=== PATIENT | female | born 2000 | race Two or more races ===

== ENCOUNTER 2020-04-29 11:30 | Emergency (ER) | payer MEDICAID, OTHER ==
[~2020-04-29] VITALS: Ht 157.5 cm; Wt 72.1 kg
[2020-04-29 12:08] VITALS: BP 120/84
[2020-04-29 12:42] LABS: Basophils # (auto) 0 10 ^3/uL (0-0.2); Basophils % (auto) 0.4 % (0.0-2.0); Eosinophils # (auto) 0.1 10 ^3/uL (0-0.8); Eosinophils % (auto) 1.2 % (0.0-7.0); Hematocrit 42.7 % (36.0-46.0); Hemoglobin 14.9 g/dL (12.2-16.2); Lymphocytes # (auto) 1.5 10 ^3/uL (0.4-5.4); Lymphocytes % (auto) 20.6 % (10.0-50.0); Mean Corpuscular Hemoglobin 31.4 pg (28.0-32.0); Mean Corpuscular Hgb Conc. 34.9 g/dL (32.0-36.0); Monocytes # (auto) 0.4 10 ^3/uL (0-1.3); Monocytes % (auto) 5.4 % (0.0-12.0); Neutrophils # (auto) 5.2 10 ^3/uL (1.6-8.6); Neutrophils % (auto) 72.4 % (37.0-80.0); Platelet Count (auto) 347 10^3/uL (140-450); Red Blood Cells 4.75 10^6/uL (4.0-5.20); Red Cell Distribution Width 13.1 % (11.8-14.3); White Blood Cell 7.2 10^3/uL (4.4-10.8)
[2020-04-29 13:01] LABS: Albumin 3.7 g/dL (3.4-5.0); Calcium 8.5 mg/dL (8.5-10.1); Potassium 3.4 mmol/L (3.5-5.1)
[2020-04-29 13:05] LABS: Total Protein 7.8 g/dL (6.4-8.2)
[2020-04-29 13:36] LABS: BUN/Creatinine Ratio 18.6
[2020-04-29] MEDS ORDERED: FLEET ENEMA(ADULT) 135 ML PR ONE (15:00)
[2020-04-29 20:53] LABS: Urine Bacteria MOD /hpf (None Seen); Urine Blood Negative /uL (Negative); Urine Mucus FEW (None Seen); Urine Specific Gravity 1.043 (1.001-1.035); Urine WBC <1 /hpf (0 - 5)
[2020-04-29] MEDS: GLYCERIN ADULT RECTAL SUPP PR ONE ×3 (20:58→21:50)
[2020-04-29] MEDS: MAGNESIUM CITRATE SOLUTION 300 ML BTL PO ONE ×2 (20:58→21:33)
[2020-04-29] MEDS ORDERED: GLYCERIN ADULT RECTAL SUPP PR ONE (21:40)
[2020-04-29] MEDS ORDERED: MAGNESIUM CITRATE SOLUTION 300 ML BTL ONE (21:40)
== END 2020-04-29 21:35 | disposition home or self-care (01) ==
LOC: ER 11:30
DX: K62.89 Other specified diseases of anus and rectum (principal); K56.41 Fecal impaction
CPT/HCPCS: 36415; 74176; 80053; 81001; 83690; 83735; 84702; 85025